=== PATIENT | female | born 1955 | race Two or more races ===

== ENCOUNTER 2020-01-24 11:32 | Inpatient (IN) | payer MEDICARE, MEDICAID ==
[~2020-01-24] VITALS: Ht 172.7 cm; Wt 79.4 kg
[~2020-01-24 11:32] MED LIST: GLYB1.25; LISI-646 PO
[2020-01-24 12:12] LABS: Basophils # (auto) 0 10 ^3/uL (0-0.2); Basophils % (auto) 0.5 % (0.0-2.0); Eosinophils # (auto) 0.3 10 ^3/uL (0-0.8); Eosinophils % (auto) 3.2 % (0.0-7.0); Hematocrit 46.1 % (36.0-46.0); Hemoglobin 15.8 g/dL (12.2-16.2); Lymphocytes # (auto) 1.1 10 ^3/uL (0.4-5.4); Lymphocytes % (auto) 12.4 % (10.0-50.0); Mean Corpuscular Hemoglobin 31.5 pg (28.0-32.0); Mean Corpuscular Hgb Conc. 34.3 g/dL (32.0-36.0); Mean Corpuscular Volume 91.9 fL (80.0-100.0); Monocytes # (auto) 0.8 10 ^3/uL (0-1.3); Monocytes % (auto) 9.2 % (0.0-12.0); Neutrophils # (auto) 6.3 10 ^3/uL (1.6-8.6); Neutrophils % (auto) 74.7 % (37.0-80.0); Platelet Count (auto) 282 10^3/uL (140-450); Red Blood Cells 5.02 10^6/uL (4.0-5.20); Red Cell Distribution Width 13.1 % (11.8-14.3); White Blood Cell 8.5 10^3/uL (4.4-10.8)
[2020-01-24 12:28] LABS: Albumin 4.1 g/dL (3.4-5.0); Anion Gap 8 (5-15); Blood Urea Nitrogen 12 mg/dL (7-18); Calcium 9.4 mg/dL (8.5-10.1); Carbon Dioxide 26 mmol/L (21-32); Chloride 102 mmol/L (98-107); Glucose 208 mg/dL (74-106); Potassium 3.5 mmol/L (3.5-5.1); Sodium 136 mmol/L (136-145)
[2020-01-24] MEDS ORDERED: ASPirin 81 mg TAB PO ONE (12:30)
[2020-01-24 12:34] LABS: Alanine Aminotransferase 33 U/L (13-56); Alkaline Phosphatase 106 U/L (45-117); Aspartate Aminotransferase 18 U/L (15-37); BUN/Creatinine Ratio 17.6; Bilirubin, Total 0.9 mg/dL (0.2-1.0); GFR African American 112 mL/min; GFR Non-African American 92 mL/min; Total Protein 8.1 g/dL (6.4-8.2)
[2020-01-24 12:56] LABS: INR 0.99 (0.9-1.15); Partial Thromboplastin Time 26.3 sec (23.0-31.2)
[2020-01-24] MEDS ORDERED: SODIUM CHLORIDE 0.9% 1,000 ML IVB ONE (13:24)
[2020-01-24] MEDS ORDERED: ONDANSETRON HCL 4 MG/2 ML VIAL IV ONE (13:30)
[2020-01-24] MEDS ORDERED: ACYCLOVIR 400 MG TAB PO ONE (13:30)
[2020-01-24] MEDS ORDERED: MORPHINE SULF INJ 2 MG/ML SYRINGE 1ML IV ONE (13:30)
[2020-01-24] MEDS ORDERED: MORPHINE SULF INJ 2 MG/ML SYRINGE 1ML IV PRN ×2 (17:30)
[2020-01-24] MEDS ORDERED: MORPHINE SULFATE 4 MG/ML SYR/VIAL IV PRN (17:30)
[2020-01-24] MEDS ORDERED: METOPROLOL SUCCINATE XL 50 MG TAB PO ONE (17:30)
[2020-01-24] MEDS ORDERED: DEXTROSE (50%) 50ML SYRG IV PRN (17:30)
[2020-01-24] MEDS ORDERED: ATORVASTATIN 20 MG TAB PO ONE (17:30)
[2020-01-24] MEDS ORDERED: ALUM & MAG HYDROX-SIMETH LIQ(MAALOX) 30 ML PO PRN (17:30)
[2020-01-24] MEDS ORDERED: LORazepam 0.5 MG TAB PO PRN (17:30)
[2020-01-24] MEDS ORDERED: ACETAMINOPHEN 325 MG TAB PO PRN (17:30)
[2020-01-24] MEDS ORDERED: ENOXAPARIN SOD 40 MG/0.4 ML SYRINGE SC ONE (17:30)
[2020-01-24] MEDS ORDERED: LISINOPRIL 20 MG TAB PO ONE (17:30)
[2020-01-24] MEDS ORDERED: HYDROcodone-ACET 5/325MG TAB PO PRN (17:30)
[2020-01-24] MEDS ORDERED: NITROGLYCERIN 0.4 MG SL TAB SL PRN ×3 (17:30)
[2020-01-24] MEDS ORDERED: FLUT50SP (18:08)
[2020-01-24] MEDS ORDERED: AMLO10TA13 PO (18:08)
[2020-01-24] MEDS ORDERED: ANAS1TAB7 PO (18:08)
[2020-01-24] MEDS ORDERED: INSU1INJ5 SC (18:08)
[2020-01-24] MEDS ORDERED: ALBUAER3 IN (18:08)
[2020-01-24] MEDS ORDERED: TRAM50TA2 PO (18:08)
[2020-01-24] MEDS ORDERED: SULF-92 PO (18:08)
[2020-01-24] MEDS ORDERED: IBUP600T27 PO (18:08)
[2020-01-24] MEDS ORDERED: INSU100I44 SC (18:08)
[2020-01-24] MEDS ORDERED: METH-532 PO (18:11)
[2020-01-24] MEDS ORDERED: GABA100C PO (18:11)
[2020-01-24] MEDS ORDERED: SUMA50TA16 PO (18:15)
[2020-01-24] MEDS: ACYCLOVIR 400 MG TAB PO SCH (18:46)
[2020-01-24] MEDS: SODIUM CHLORIDE 0.9% 1,000 ML IV SCH (18:47)
[2020-01-24] MEDS: MORPHINE SULF INJ 2 MG/ML SYRINGE 1ML IV PRN (20:42)
[2020-01-24] MEDS: ONDANSETRON HCL 4 MG/2 ML VIAL IV PRN (20:43)
[2020-01-24] MEDS ORDERED: ACCU-CHEK COMFORT CURVE STRIP VI SCH (22:00)
[2020-01-24] MEDS ORDERED: InsuLIN REG 1unit/0.01ml Soln (100units/ml) SC SCH (22:00)
[2020-01-24] MEDS: METOPROLOL TARTRATE 25 MG TAB PO SCH (22:33)
--- NOTE | 2020-01-24 23:15 | NUR ---
Telemetry admit from ER TIMOTHY BIGGS admitted to Telemetry unit. Patient oriented to Gifty Trevino RN primary RN, unit, room, bed, and unit policies regarding patient care and visiting hours. Patient now on continuous telemetry monitoring, tele box #[id number] and telemetry reading on arrival to unit is NSR. Patient placed on bedside oxygen, weighed by bedscale and encouraged to call if they need something. All questions and concerns addressed, patient verbalized understanding. Note: patient alert and oriented x 4, on room air with even and unlabored, no s/s of distress. Patient turns independently in bed and ambulated with steady gait. Bed in lowest locked position with side rails up x 2 and call light within reach. Instructed on POC and to call for assistance PRN. Will continue to monitor.
[2020-01-24 23:35] VITALS: BP 146/65
[2020-01-25] MEDS: ACYCLOVIR 400 MG TAB PO SCH ×4 (01:01→15:20)
[2020-01-25] MEDS: MORPHINE SULF INJ 2 MG/ML SYRINGE 1ML IV PRN ×2 (01:04→10:07)
[2020-01-25 05:00] VITALS: BP 134/41
[2020-01-25] MEDS ORDERED: DEXTROSE (50%) 50ML SYRG IV PRN (06:15)
[2020-01-25] MEDS ORDERED: cloNIDine HCL 0.1 MG TAB PO PRN (06:15)
[2020-01-25] MEDS ORDERED: ALBUTEROL SULF 2.5 MG/0.5ML(0.5%) NEB SOLN NEB PRN (06:15)
[2020-01-25] MEDS: SODIUM CHLORIDE 0.9% 1,000 ML IV SCH (06:45)
--- NOTE | 2020-01-25 07:08 | NUR ---
Closing note status unchanged, patient awake resting in bed on room air with even and unlabored respirations, no s/s of distress. Bed in lowest locked position with side rails up x 2 and call light within reach. Endorsed care to day shift RN.
--- NOTE | 2020-01-25 08:00 | NUR ---
Morning note Patient resting in bed with even and unlabored respirations, no distress noted. Instructed patient on POC, fall precautions and to call for assistance as needed. Patient verbalized understanding. Fall precautions in place with call light within reach.
[2020-01-25 09:00] VITALS: BP 114/61
[2020-01-25] MEDS ORDERED: SUMAtriptan SUCCINATE 25 MG TAB PO PRN (09:45)
[2020-01-25] MEDS ORDERED: ENOXAPARIN SOD 40 MG/0.4 ML SYRINGE SC SCH (10:00)
[2020-01-25] MEDS ORDERED: DOCUSATE SOD 100 MG CAP PO SCH (10:00)
[2020-01-25] MEDS ORDERED: NIFEdipine ER 30 MG TAB PO SCH (10:00)
[2020-01-25] MEDS ORDERED: ASPirin 81 mg TAB PO SCH (10:00)
[2020-01-25] MEDS ORDERED: LISINOPRIL 20 MG TAB PO SCH ×2 (10:00)
[2020-01-25] MEDS ORDERED: SUMAtriptan SUCCINATE 25 MG TAB PO SCH (10:00)
[2020-01-25] MEDS: ONDANSETRON HCL 4 MG/2 ML VIAL IV PRN (10:07)
[2020-01-25] MEDS: METOPROLOL TARTRATE 25 MG TAB PO SCH (10:14)
--- NOTE | 2020-01-25 10:15 | NUR ---
RE: Medication refused Patient refused home medication to be administered. Patient stated "I just started taking that. I only have taken one time and then all of this happened so I prefer not to take it right now until I get better."
[2020-01-25] MEDS: IPRATROPIUM BROM 0.5 MG/2.5ML INH SOL NEB SCH ×2 (11:50→14:45)
--- NOTE | 2020-01-25 11:55 | NUR ---
Nutrition Assessment Notes Please refer to link for full assessment notes. Est Energy needs: 4922-0090 kcals (20-23 kcal/kgBW) Est Protein needs: 79-87 gms/day (1.0-1.1 gm/kgBW) Will continue to monitor and reassess prn. Addendum: 01/25/20 at [address] Amended: Links added. Addendum: 01/25/20 at [address] Noted pt diet changed to CCHO 60g today
[2020-01-25] MEDS ORDERED: METHOCARBAMOL 500 MG TAB PO SCH (12:00)
[2020-01-25] MEDS ORDERED: InsuLIN REG 1unit/0.01ml Soln (100units/ml) SC SCH (12:00)
[2020-01-25] MEDS ORDERED: ACCU-CHEK COMFORT CURVE STRIP VI SCH (12:00)
[2020-01-25 13:00] VITALS: BP 112/50
--- NOTE | 2020-01-25 14:55 | NUR ---
Patient ambulated to restroom Patient ambulated to restroom with standby assistance provided by staff member. Patient has a steady gait. Respirations even and unlabored, no distress noted. Patient returned to bed with no complications. Call light within reach.
--- NOTE | 2020-01-25 15:36 | NUR ---
Discharge Discharge education and paperwork provided to the patient per MD order. Patient verbalized understanding. Discharge prescription provided to the patient. IV removed with aseptic technique and catheter intact. Dressing applied. Patient tolerated well, no trauma to site. Telemonitor removed and returned. Patient reports having all personal belongings. Contact precaution education provided to the patient. Patient verbalized understanding. Respirations even and unlabored respirations, no distress noted. Instructed patient to notify staff once transportation arrives to the hospital. Patient verbalized understanding.
--- NOTE | 2020-01-25 16:36 | NUR ---
SS CONSULT Per ss consult patient requesting advanced directive. Ella KIMBROUGH provided patient with advanced directive. Addendum: 01/25/20 at 1638 by Liza Sarmiento Amended: Links added.
--- NOTE | 2020-01-25 16:43 | NUR ---
Transportation arrived to hospital Patient taken to private vehicle via wheelchair accompanied by staff member. Respirations even and unlabored, no distress noted. Patient reports having all personal belongings.
--- NOTE | 2020-01-25 17:26 | NUR ---
RE: discharge prescription [facility] pharmacist called this RN to notify that patient turned in prescription for [place]. Medication is unavailable. Patient offered to go to another pharmacy to have prescription filled. Patient refused. Pharmacist requesting prescription be changed to 50mg Tramadol PO Q6hr PRN #30. This RN spoke with Dr. Cross, on-call hospitalist, and received verbal authorization to have prescription changed. Notified [facility].
[2020-01-25] MEDS ORDERED: ATORVASTATIN 20 MG TAB PO SCH (22:00)
[2020-01-25] MEDS ORDERED: GABAPENTIN 100 MG CAP PO SCH (22:00)
== END 2020-01-25 16:40 | disposition home or self-care (01) | DRG 866 ==
LOC: ER 11:32 → TELE 11:33 → TELE-CENTR 23:02
PROVIDERS: ADMIT Hospitalist; ATTEND Family Medicine
DX: B02.8 Zoster with other complications (principal); C50.911 Malignant neoplasm of unspecified site of right female breast; J44.9 Chronic obstructive pulmonary disease, unspecified; E78.5 Hyperlipidemia, unspecified; I10 Essential (primary) hypertension; E66.9 Obesity, unspecified; E11.40 Type 2 diabetes mellitus with diabetic neuropathy, unspecified; E78.00 Pure hypercholesterolemia, unspecified; F32.9 Major depressive disorder, single episode, unspecified; Z79.4 Long term (current) use of insulin; Z68.26 Body mass index [BMI] 26.0-26.9, adult; Z71.3 Dietary counseling and surveillance; Z79.899 Other long term (current) drug therapy; Z80.3 Family history of malignant neoplasm of breast; Z82.49 Family history of ischemic heart disease and other diseases of the circulatory system; Z85.3 Personal history of malignant neoplasm of breast; Z83.3 Family history of diabetes mellitus; R07.89 Other chest pain
CPT/HCPCS: 36415; 71045; 71046; 80053; 82962; 83036; 83735; 83880; 84443; 84484; 85025; 85610; 85730; 87040; 93005; 94640; G0378; J1815; J2405